=== PATIENT | male | born 1935 | race Caucasian/White ===

== ENCOUNTER 2024-10-28 15:26 | Inpatient (IN) ==
[2024-10-28 16:33] LABS: Basophils # (Auto) 0.06 K/mcL (0.00-0.30); Basophils % (Auto) 0.5 % (0.0-2.0); Eosinophils # (Auto) 0.05 K/mcL (0.00-0.70); Eosinophils % (Auto) 0.4 % (0.0-7.0); Hematocrit 26.1 % (40.1-51.0); Hemoglobin 8.5 g/dL (13.7-17.5); Lymphocytes # (Auto) 0.77 K/mcL (1.50-4.80); Lymphocytes % (Auto) 6.8 % (15.5-49.0); Mean Cell Volume 101.6 fL (80.0-100.0); Mean Corpuscular HGB Conc 32.6 g/dL (31.0-36.0); Mean Platelet Volume 8.8 fL (8.8-12.5); Monocytes # (Auto) 1.16 K/mcL (0.10-0.90); Monocytes % (Auto) 10.2 % (1.0-12.0); Neutrophils % (Auto) 81.8 % (38.0-78.0); Platelet Count 304 K/mcL (140-440); RBC 2.57 M/mcL (4.63-6.08); Red Cell Distribution Width 13.1 % (11.5-14.5); WBC 11.4 K/mcL (4.5-11.0)
[2024-10-28 17:06] LABS: INR 7.4 (0.9-1.1); Prothrombin Time 64.3 sec (11.9-14.5)
[2024-10-28] MEDS: ACETAMINOPHEN 500 MG TABLET PO ONE (17:06)
[2024-10-28] MEDS: PHYTONADIONE 10 MG/ML AMPUL PO ONE (17:37)
[2024-10-28] MEDS: HYDROmorphone 0.5 MG/0.5 ML SYRINGE IV ONE (18:31)
[2024-10-28 19:38] LABS: ALT/SGPT 14 U/L (<40); AST/SGOT 23 U/L (<40); Albumin 3.9 gm/dL (3.2-5.2); Albumin/Globulin Ratio 1.3 (1.0-2.3); Alkaline Phosphatase 52 U/L (39-117); Bilirubin,Direct 0.4 mg/dL (<0.3); Bilirubin,Total 0.8 mg/dL (0.1-1.0); Blood Urea Nitrogen 15 mg/dL (8-23); Calcium 9.8 mg/dL (8.6-10.4); Carbon Dioxide 23 mmol/L (22-30); Chloride 97 mmol/L (96-108); Globulin 2.9 gm/dL (2.2-3.7); Glomerular Filtration Rate 67; Glucose 172 mg/dL (70-105); Lactate Dehydrogenase 242 U/L (135-225); Phosphorous 2.6 mg/dL (2.5-4.5); Potassium 4.7 mmol/L (3.3-5.1); Sodium 131 mmol/L (133-145); Triglycerides 114 mg/dL (<150); Uric Acid 7.1 mg/dL (2.5-8.0)
[2024-10-28] MEDS ORDERED: POTASSIUM CHLORIDE 40 MEQ in DEXTROSE 5% IN WATER 500 ML IV PRN (20:04)
[2024-10-28] MEDS ORDERED: SENNOSIDES 1 TABLET PO PRN (20:04)
[2024-10-28] MEDS ORDERED: DEXTROSE 31 GM ORAL.SUSP PO PRN (20:04)
[2024-10-28] MEDS ORDERED: IPRATROPIUM/ALBUTEROL 3 ML AMPUL.NEB NEB PRN (20:04)
[2024-10-28] MEDS ORDERED: ONDANSETRON 4 MG/2 ML VIAL IV PRN (20:04)
[2024-10-28] MEDS ORDERED: METOCLOPRAMIDE 10 MG/2 ML VIAL IV PRN (20:04)
[2024-10-28] MEDS ORDERED: POLYETHYLENE GLYCOL 3350 17 GM PACKET PO PRN (20:04)
[2024-10-28] MEDS ORDERED: DEXTROSE 50% 50 ML VIAL IV PRN (20:04)
[2024-10-28] MEDS ORDERED: MAGNESIUM SULFATE 2 GM/50 ML BAG IV PRN (20:04)
[2024-10-28] MEDS ORDERED: ACETAMINOPHEN 325 MG TABLET PO PRN (20:04)
[2024-10-28] MEDS ORDERED: POTASSIUM CHLORIDE 20 MEQ TABLET PO PRN ×2 (20:04)
[2024-10-28] MEDS: HYDROcodone/APAP 5/325MG TABLET PO PRN (20:30)
[2024-10-28] MEDS: HYDROmorphone 0.5 MG/0.5 ML SYRINGE IV PRN (21:07)
[2024-10-28] MEDS: hydrALAZINE 20 MG/ML VIAL IV PRN (21:07)
[2024-10-28] MEDS: DOCUSATE SODIUM 100 MG CAPSULE PO SCH (21:08)
[2024-10-28] MEDS: INSULIN LISPRO 1 UNIT/0.01 ML UNIT SQ SCH (21:24)
[2024-10-28] MEDS: 0.9 % SODIUM CHLORIDE 10 ML SYRINGE IV SCH (22:29)
[2024-10-29 06:04] LABS: Basophils # (Auto) 0.05 K/mcL (0.00-0.30); Basophils % (Auto) 0.4 % (0.0-2.0); Eosinophils # (Auto) 0.05 K/mcL (0.00-0.70); Eosinophils % (Auto) 0.4 % (0.0-7.0); Hematocrit 23.9 % (40.1-51.0); Lymphocytes # (Auto) 0.71 K/mcL (1.50-4.80); Lymphocytes % (Auto) 5.6 % (15.5-49.0); Mean Cell Volume 101.3 fL (80.0-100.0); Mean Corpuscular HGB Conc 33.5 g/dL (31.0-36.0); Mean Platelet Volume 8.8 fL (8.8-12.5); Monocytes # (Auto) 1.61 K/mcL (0.10-0.90); Monocytes % (Auto) 12.8 % (1.0-12.0); Neutrophils % (Auto) 80.5 % (38.0-78.0); Platelet Count 265 K/mcL (140-440); RBC 2.36 M/mcL (4.63-6.08); Red Cell Distribution Width 13.2 % (11.5-14.5); WBC 12.6 K/mcL (4.5-11.0)
[2024-10-29 06:30] LABS: INR 3.6 (0.9-1.1); Prothrombin Time 36.6 sec (11.9-14.5)
[2024-10-29 06:47] LABS: ALT/SGPT 13 U/L (<40); AST/SGOT 32 U/L (<40); Albumin 3.8 gm/dL (3.2-5.2); Albumin/Globulin Ratio 1.4 (1.0-2.3); Alkaline Phosphatase 49 U/L (39-117); Bilirubin,Direct 0.4 mg/dL (<0.3); Bilirubin,Total 0.9 mg/dL (0.1-1.0); Blood Urea Nitrogen 14 mg/dL (8-23); Calcium 9.7 mg/dL (8.6-10.4); Carbon Dioxide 20 mmol/L (22-30); Chloride 96 mmol/L (96-108); Globulin 2.8 gm/dL (2.2-3.7); Glomerular Filtration Rate 76; Glucose 150 mg/dL (70-105); Lactate Dehydrogenase 259 U/L (135-225); Phosphorous 3.1 mg/dL (2.5-4.5); Potassium 4.7 mmol/L (3.3-5.1); Sodium 129 mmol/L (133-145); Triglycerides 95 mg/dL (<150); Uric Acid 6.8 mg/dL (2.5-8.0)
[2024-10-29] MEDS ORDERED: traZODone HCL 50 MG TABLET PO PRN (08:02)
[2024-10-29] MEDS: LISINOPRIL 10 MG TABLET PO SCH (09:19)
[2024-10-29] MEDS: MEMANTINE 10 MG TABLET PO SCH (09:19)
[2024-10-29] MEDS: SIMVASTATIN 20 MG TABLET PO SCH (09:20)
[2024-10-29] MEDS: SODIUM CHLORIDE 1 GM TABLET PO SCH (09:24)
[2024-10-29 09:48] LABS: Basophils % (Manual) 1 % (0-2); Lymphocytes % 5 % (15-49); Monocytes % (Manual) 8 % (1-12); Platelet Estimate NORMAL (Normal); RBC Morphology NORMAL (Normal); Segmented Neutrophils % 86 % (38-78)
[2024-10-29 18:53] LABS: INR 1.9 (0.9-1.1); Prothrombin Time 22.5 sec (11.9-14.5)
[2024-10-29] MEDS: HEPARIN SOD,PORK IN 0.45% NACL 25,000 UNIT in PREMIX 1 BAG IV SCH (19:42)
[2024-10-29] MEDS: HEPARIN SOD,PORK IN 0.45% NACL 500 ML IV ONE (21:26)
[2024-10-30] MEDS ORDERED: 0.9 % SODIUM CHLORIDE 1,000 ML IV SCH (04:15)
[2024-10-30 04:32] LABS: Basophils # (Auto) 0.06 K/mcL (0.00-0.30); Basophils % (Auto) 0.4 % (0.0-2.0); Eosinophils # (Auto) 0.11 K/mcL (0.00-0.70); Eosinophils % (Auto) 0.7 % (0.0-7.0); Hematocrit 23.6 % (40.1-51.0); Hemoglobin 7.9 g/dL (13.7-17.5); Lymphocytes # (Auto) 1.71 K/mcL (1.50-4.80); Lymphocytes % (Auto) 10.2 % (15.5-49.0); Mean Cell Volume 101.7 fL (80.0-100.0); Mean Corpuscular HGB Conc 33.5 g/dL (31.0-36.0); Mean Platelet Volume 8.9 fL (8.8-12.5); Monocytes # (Auto) 2.21 K/mcL (0.10-0.90); Monocytes % (Auto) 13.2 % (1.0-12.0); Neutrophils % (Auto) 75.3 % (38.0-78.0); Platelet Count 306 K/mcL (140-440); RBC 2.32 M/mcL (4.63-6.08); Red Cell Distribution Width 13.6 % (11.5-14.5); WBC 16.7 K/mcL (4.5-11.0)
[2024-10-30 04:57] LABS: Blood Urea Nitrogen 19 mg/dL (8-23); Carbon Dioxide 20 mmol/L (22-30); Chloride 94 mmol/L (96-108); Glomerular Filtration Rate 54; Glucose 193 mg/dL (70-105); INR 1.6 (0.9-1.1); Potassium 4.5 mmol/L (3.3-5.1); Sodium 128 mmol/L (133-145)
[2024-10-30] MEDS: 0.9 % SODIUM CHLORIDE 500 ML IV ONE (05:00)
[2024-10-30] MEDS: HEPARIN SOD,PORK IN 0.45% NACL 25,000 UNIT in PREMIX 1 BAG IV SCH (11:03)
[2024-10-30 13:16] LABS: Hematocrit 24.9 % (40.1-51.0); Hemoglobin 8.3 g/dL (13.7-17.5)
[2024-10-30] MEDS: HEPARIN SOD,PORK IN 0.45% NACL 500 ML IV ONE (14:14)
[2024-10-31] MEDS: HEPARIN SOD,PORK IN 0.45% NACL 500 ML IV ONE (03:49)
[2024-10-31 05:37] LABS: Blood Urea Nitrogen 24 mg/dL (8-23); Calcium 9.8 mg/dL (8.6-10.4); Carbon Dioxide 20 mmol/L (22-30); Chloride 96 mmol/L (96-108); Glomerular Filtration Rate 54; Glucose 150 mg/dL (70-105); Potassium 4.4 mmol/L (3.3-5.1); Sodium 129 mmol/L (133-145)
[2024-10-31 06:44] LABS: INR 1.3 (0.9-1.1); Prothrombin Time 17.1 sec (11.9-14.5)
[2024-10-31 09:37] LABS: Hematocrit 21.8 % (40.1-51.0); Hemoglobin 7.1 g/dL (13.7-17.5)
[2024-10-31 09:52] LABS: Thyroid Stimulating Hormone 2.87 uIU/mL (0.27-5.01)
[2024-10-31] MEDS ORDERED: IOPAMIDOL 100 ML BOTTLE IV ONE (12:39)
[2024-10-31 13:15] LABS: Hematocrit 22.8 % (40.1-51.0); Hemoglobin 7.5 g/dL (13.7-17.5)
[2024-10-31] MEDS: 0.9 % SODIUM CHLORIDE 250 ML IV SCH (14:33)
[2024-10-31 19:05] LABS: Hematocrit 22.3 % (40.1-51.0); Hemoglobin 7.4 g/dL (13.7-17.5)
== END 2024-10-31 19:47 | disposition short-term general hospital (02) | DRG 605 ==
LOC: ED 15:26 → MEDSUR 20:02 → INTOOBSV 20:02
PROVIDERS: ADMIT Internal Medicine; ATTEND Internal Medicine